=== PATIENT | female | born 1975 | race African-American/Black ===

== ENCOUNTER 2016-06-13 18:34 | Emergency (ER) | payer OTHER ==
[~2016-06-13] VITALS: Ht 170.2 cm; Wt 131.5 kg
--- NOTE | 2016-06-13 20:43 | ED GENERAL ADULT ---
History of Present Illness General Chief Complaint: Low Back Pain/Injury Stated Complaint: "LOWER BACK PAIN" Source: patient Exam Limitations: no limitations Vital Signs & Intake/Output Vital Signs & Intake/Output Vital Signs Date Time Temp Pulse Resp B/P Pulse O2 O2 Flow FiO2 Ox Delivery Rate 06/13 2310 97.7 78 16 134/85 97 Room Air 06/13 2131 98 Room Air 06/13 1928 97.2 80 18 117/86 97 Room Air ED Intake and Output 06/14 0000 06/13 1200 Intake Total 0 Output Total Balance 0 Intake, Oral 0 Patient 290 lb Weight Allergies Coded Allergies: NO KNOWN ALLERGIES (06/26/11) Reconcile Medications Buprenorphine (Butrans) 20 MCG/HOUR PATCH.TDWK 1 PAT TOP QW pain (Reported) Cyclobenzaprine HCl 10 MG TABLET 1 TAB PO TID PRN pain Metformin HCl (Metformin HCl ER) 500 MG TAB.ER.24 1 TAB PO DAILY diabetes ( Reported) Triage Note: PT COMPLAINS OF LOW BACK PAIN FOR ABOUT 1.5 WEEKS , DENIES INJURY, PT HAS NOT TAKEN ANYTHING FOR THE PAIN. Triage Nurses Notes Reviewed? yes : No Patient currently breastfeeds: No HPI: Patient is a 40-year-old lady that has come to the ED complaining of right back pain for about a week and a half. Pain is sharp H to 10 out of 10 does not radiate but improves with moving and aggravates while sitting or lying down or bending. Patient denies any trauma, accident or heavy lifting, she denies fevers, but reports having frequency and nocturia for the past week. Patient has diabetes and takes metformin 500 mg daily. she had HbA1C checked in march and reports it was 6.0% Denies any dysuria or changes in the urine color. Denies abdominal pain, diarrhea, reports swelling in the legs a few months ago left side more tender right which she followed up with Dr. Cardenas and was negative for DVT. Currently does not report any swelling. Patient has a history of right and left fibula fracture in 1999 1210 respectively she also has a history of vague pain in the groin for which she gets physical therapy she denies having a similar back pain in the past. (NADIRA DEE,[facility]) Past History Travel History Traveled to [place] past 21 day No Medical History Any Pertinent Medical History? see below for history Neurological: NONE EENT: NONE Cardiovascular: NONE Respiratory: NONE Gastrointestinal: NONE Hepatic: NONE Renal: NONE Musculoskeletal: chronic back pain (chronic leg pain), fractures of the right fibula requiring opend reduction and internal fixation (in 2012) and left fibula (in 2011) Psychiatric: NONE Endocrine: diabetes Blood Disorders: NONE Cancer(s): NONE Surgical History Surgical History: open reduction internal fixation of the right fibula Psychosocial History What is your primary language Armenian Tobacco Use: Never used ETOH Use: denies use Illicit Drug Use: denies illicit drug use Family History Family History, If Any: MOTHER FH: diabetes in FH: HTN (hypertension) FHx: heart disease FATHER Hx Contributory? No (DANNY WADDELL MD) Review of Systems Review of Systems Constitutional: Denies: chills, fever, weakness. EENTM: Reports: no symptoms. Respiratory: Reports: no symptoms. Cardiovascular: Reports: no symptoms. GI: Reports: no symptoms. Genitourinary: Reports: frequency, nocturia. Denies: dysuria. Musculoskeletal: Reports: back pain. Skin: Reports: no symptoms. Neurological/Psychological: Denies: numbness, tingling, weakness. Hematologic/Endocrine: Reports: polyuria. Denies: bruising, bleeding. (DANNY WADDELL MD) Physical Exam Physical Exam General Appearance: well developed/nourished, no apparent distress, alert, awake Head: atraumatic, normal appearance Eyes: Bilateral: PERRL, EOMI. Ears, Nose, Throat: normal pharynx, nasal congestion Neck: normal inspection, supple, full range of motion Respiratory: normal breath sounds, chest non-tender, no respiratory distress Cardiovascular: regular rate/rhythm Peripheral Pulses: 2+ radial (R), 2+ radial (L) Gastrointestinal: normal bowel sounds, soft, non-tender Back: tenderness on the lumbar vertebrae as well as posterior left pelvis , no CVA tenderness Extremities: normal inspection, normal capillary refill, normal range of motion, no edema Neurologic/Psych: no motor/sensory deficits, awake, alert, oriented x 3 Skin: intact Core Measures ACS in differential dx? No CVA/TIA Diagnosis: No Severe Sepsis Present: No Septic Shock Present: No (DANNY WADDELL MD) Progress Differential Diagnoses I considered the following diagnoses in my evaluation of the patient: [Disc herniation,uncontrolled diabetes] Plan of Care: Orders Procedure Date/time Status FingerStick- Glucose 06/13 2133 Active URINE 06/13 1930 Complete URINALYSIS 06/13 1930 Complete Laboratory Tests 06/13/16 1950: Urinalysis LIGHT H, Urine Color YEL, Urine Clarity CLDY H, Urine pH 7.0, Ur Specific [place] 1.015, Urine Protein NEG, Urine Ketones NEG, Urine Nitrite NEG, Urine Bilirubin NEG, Urine Urobilinogen 0.2, Ur Leukocyte Esterase SMALL H, Ur Microscopic SEDIMENT EXAMINED, Urine RBC RARE, Urine WBC 5-10 H, Ur Epithelial Cells MOD H, Urine Mucus FEW, Urine Hemoglobin NEG, Urine Glucose >=1000 H, Urine Test NEGATIVE Initial ED EKG: none Comments: urine test is negative, urine shows elevated glucose, IM toradol was administered for pain. (DANNY WADDELL MD) Differential Diagnoses I considered the following diagnoses in my evaluation of the patient: (VIOLETA MATOS DO) Departure Departure Disposition: HOME OR SELF CARE Condition: Stable Clinical Impression Primary Impression: Lumbar disc herniation Secondary Impressions: Uncontrolled diabetes mellitus Referrals: JIHAN VALENTIN MD (PCP/Family) Departure Forms: Customer Survey General Discharge Information Prescriptions: Current Visit Scripts Cyclobenzaprine HCl 1 TAB PO TID PRN pain #30 TAB (DANNY WADDELL MD) Resident Co-Sign Statement Statement: ED Attending supervision documentation- [x] I saw and evaluated the patient. I have also reviewed all the pertinent lab results and diagnostic results. I agree with the findings and the plan of care as documented in the Resident's documentation. [] I have reviewed the ED Record and agree with the Resident's documentation. [] Additions or exceptions (if any) to the Resident's note and plan are summarized below: [] 40-year-old female with a history of diabetes noncompliant with her metformin today, she is complaining of ongoing low back pain. No fever no lower extremity weakness, no bowel or bladder dysfunction. Physical exam is significant for lower lumbar tenderness. She had an elevated blood glucose. No ketones in the urine. No hematuria. She was given insulin in the ED, Flexeril for the pain, she'll follow-up with her doctor on Thursday. Lumbar x-ray unremarkable PATIENT: AUDELIA SLATER PRESENT AGE: 40 PATIENT ACCOUNT NO: [id number] : 73 LOCATION: [facility] ORDERING PHYSICIAN: DANNY WADDELL MD SERVICE DATE: 06/13/16- EXAM TYPE: RAD - XRY-LUMBAR SPINE ONE VIEW EXAMINATION: XR LUMBAR SPINE CLINICAL INFORMATION: Lower back pain. COMPARISON: Plain films of the lumbar spine to 11/04/2013. TECHNIQUE: Single AP view of the lumbar spine. FINDINGS: Please note that single view of the lumbar spine is limited in its diagnostic capability. There are 4 nonrib-bearing lumbar vertebral bodies with previously noted hemisacralization of the L5 vertebral body. Vertebral body heights and intervertebral disc spaces appear preserved on single AP view. No abnormal soft tissue calcifications are noted. Paraspinal soft tissues appear unremarkable. IMPRESSION: Limited exam secondary to single view of the lumbar spine. Four nonrib-bearing lumbar vertebral bodies with a previously noted hemisacralization of the L5 vertebral body. Vertebral body heights and intervertebral disc spaces appear preserved. DICTATED BY: CHERRIE ARCHER MD DATE/TIME DICTATED:06/13/162328 MAINTENANCE SUPERVISOR 2ND SHIFT:CHER DATE/TIME TRANSCRIBED:06/13/162328 CONFIDENTIAL, DO NOT COPY WITHOUT APPROPRIATE AUTHORIZATION. <Electronically signed in Other Vendor System> SIGNED BY: CHERRIE ARCHER MD 06/13/16 2169 (VIOLETA MATOS DO) Critical Care Note Critical Care Note Critical Care Time: non-applicable (NADIRA DEE,DANNY)
[2016-06-13] MEDS ORDERED: METFORMIN HCL500 M2 PO (21:21)
[2016-06-13] MEDS ORDERED: BUTRANS1 EAC2 TOP (21:25)
[2016-06-13 23:10] VITALS: BP 134/85
[2016-06-13] MEDS ORDERED: CYCLOBENZAPRINE10 M1 PO (23:30)
--- NOTE | 2016-06-13 23:35 | RADIOLOGY REPORT ---
EXAMINATION: XR LUMBAR SPINE CLINICAL INFORMATION: Lower back pain. COMPARISON: Plain films of the lumbar spine to 11/04/2013. TECHNIQUE: Single AP view of the lumbar spine. FINDINGS: Please note that single view of the lumbar spine is limited in its diagnostic capability. There are 4 nonrib-bearing lumbar vertebral bodies with previously noted hemisacralization of the L5 vertebral body. Vertebral body heights and intervertebral disc spaces appear preserved on single AP view. No abnormal soft tissue calcifications are noted. Paraspinal soft tissues appear unremarkable. IMPRESSION: Limited exam secondary to single view of the lumbar spine. Four nonrib-bearing lumbar vertebral bodies with a previously noted hemisacralization of the L5 vertebral body. Vertebral body heights and intervertebral disc spaces appear preserved.
== END 2016-06-13 23:45 ==
LOC: ERH 18:34
DX: M51.26 Other intervertebral disc displacement, lumbar region (principal); E11.9 Type 2 diabetes mellitus without complications
CPT/HCPCS: 72020; 81001; 81025; 96372; J1885

== ENCOUNTER 2017-12-23 11:01 | Emergency (ER) | payer OTHER ==
[~2017-12-23] VITALS: Ht 170.2 cm; Wt 140.6 kg
[~2017-12-23 11:01] MED LIST: BUTRANS1 EAC2 TOP; CYCLOBENZAPRINE10 M1 PO; METFORMIN HCL500 M2 PO
[2017-12-23] MEDS ORDERED: OZEMPIC1 MG/0.75 SC (11:43)
--- NOTE | 2017-12-23 12:00 | ED DYSPNEA/ASTHMA COMPLAINT ---
History of Present Illness General Chief Complaint: General Adult Stated Complaint: FEET SWOLLEN Source: patient Exam Limitations: no limitations Vital Signs & Intake/Output Vital Signs & Intake/Output Vital Signs Date Time Temp Pulse Resp B/P B/P Pulse O2 O2 Flow FiO2 Mean Ox Delivery Rate 12/23 1338 97.0 90 20 120/80 98 Room Air 12/23 1143 Room Air 12/23 1116 97.1 92 18 119/82 96 Room Air Allergies Coded Allergies: NO KNOWN ALLERGIES (06/26/11) Reconcile Medications Buprenorphine (Butrans) 20 MCG/HOUR PATCH.TDWK 1 PAT TOP QW pain (Reported) Cyclobenzaprine HCl 10 MG TABLET 1 TAB PO TID PRN pain Furosemide (Lasix) 20 MG TABLET 1 TAB PO DAILY PRN LEG EDEMA Metformin HCl (Metformin HCl ER) 500 MG TAB.ER.24 1 TAB PO DAILY diabetes ( Reported) Semaglutide (Ozempic) 1 MG/0.75 ML (2 MG/1.5 ML) PEN.INJCTR DIABETES (Reported) Triage Note: PT STATES THAT FOR THE PAST COUPLE WEEKS HER BILATERAL FEET HAVE BEEN SWELLING UP WHEN SHE IS UP MOVING AROUND. SWELLING GOES DOWN WHEN SHE ELEVATES HER FEET. DENIES SOB Triage Nurses Notes Reviewed? yes Onset: Gradual Duration: intermittent Timing: recent history Severity: moderate : No Patient currently breastfeeds: No HPI: Patient is a 42-year-old female with a past medical history of chronic back pain and diabetes who presents to emergency room with a 3 week history of intermittent bilateral lower extremity swelling that is made worse at the end of her work day and better with elevation and rest. Patient denies any fever or chills chest pain dyspnea on exertion shortness of breath cough hemoptysis history of DVT or PE or change in frequency of urination. (Haim Nolan) Past History Travel History Traveled to [place] past 21 day No Medical History Any Pertinent Medical History? see below for history Neurological: NONE EENT: NONE Cardiovascular: NONE Respiratory: NONE Gastrointestinal: NONE Hepatic: NONE Renal: NONE Musculoskeletal: chronic back pain (chronic leg pain), fractures of the right fibula requiring opend reduction and internal fixation (in 2011) and left fibula (in 2010) Psychiatric: NONE Endocrine: diabetes Blood Disorders: NONE Cancer(s): NONE Surgical History Surgical History: open reduction internal fixation of the right fibula Psychosocial History What is your primary language Chinese Tobacco Use: Never used ETOH Use: denies use Illicit Drug Use: marijuana Family History Family History, If Any: MOTHER FH: diabetes in FH: HTN (hypertension) FHx: heart disease FATHER Hx Contributory? No (Haim Nolan) Review of Systems Review of Systems Constitutional: Reports: no symptoms. EENTM: Reports: no symptoms. Respiratory: Reports: see HPI. Denies: cough, short of breath. Cardiovascular: Reports: see HPI, edema, peripheral edema. GI: Reports: no symptoms. Genitourinary: Reports: no symptoms. Musculoskeletal: Reports: no symptoms. Skin: Reports: no symptoms. Neurological/Psychological: Reports: no symptoms. Hematologic/Endocrine: Reports: no symptoms. Immunologic/Allergic: Reports: no symptoms. All Other Systems: Reviewed and Negative (Haim Nolan) Physical Exam Physical Exam General Appearance: no apparent distress, alert, obese Head: atraumatic Eyes: Bilateral: normal appearance. Ears, Nose, Throat: normal ENT inspection Neck: normal inspection Respiratory: normal breath sounds, chest non-tender, no respiratory distress Cardiovascular: regular rate/rhythm Peripheral Pulses: 2+ dorsalis pedis (R), 2+ dorsalis pedis (L) Extremities: pedal edema Neurologic/Psych: no motor/sensory deficits Skin: intact, normal color, warm/dry Core Measures ACS in differential dx? No CVA/TIA Diagnosis No Sepsis Present: No Sepsis Focused Exam Completed? No (Haim Nolan) Progress Differential Diagnosis: asthma, AMI, CHF, COPD, musculoskeletal pain, pericarditis, pulmonary embolism, pneumonia, pneumothorax, unstable angina Plan of Care: Orders Procedure Date/time Status Add-on Test (ER Only) 12/23 1252 Active HUMAN BETA HCG SCREEN 12/23 1137 Complete URINE 12/23 1121 Active URINALYSIS 12/23 1121 Active TROPONIN LEVEL 12/23 1121 Complete COMPREHENSIVE METABOLIC PANEL 12/23 1121 Complete CBC WITHOUT DIFFERENTIAL 12/23 1121 Complete B-TYPE NATRIURETIC PEP (BNP) 12/23 1121 Complete EKG 12/23 1121 Active Laboratory Tests 12/23/17 1137: Anion Gap 4 L, Estimated GFR > 60, BUN/Creatinine Ratio 10.0, Glucose 196 H, Calcium 9.0, Total Bilirubin 0.2, AST 21, ALT 41, Alkaline Phosphatase 83, Troponin I < 0.01, Phm-P-Muxlygnhbea Pept 31.3, Total Protein 6.4, Albumin 3.5, Globulin 2.9, Albumin/Globulin Ratio 1.2, Total Beta HCG NEGATIVE, CBC w Diff NO MAN DIFF REQ, RBC 5.29, MCV 73.7 L, MCH 24.6 L, MCHC 33.5, RDW 16.0 H, MPV 10.1, Gran % 49.5, Lymphocytes % 39.3, Monocytes % 7.4, Eosinophils % 3.4, Basophils % 0.4, Absolute Granulocytes 2.2, Absolute Lymphocytes 1.7, Absolute Monocytes 0.3, Absolute Eosinophils 0.1, Absolute Basophils 0 Patient on initial presentation is resting comfortable at bedside on her phone in no apparent distress, patient was neurovascular intact to lower extremities patient has nonpitting +2 bilateral lower extremity edema. Denies any respiratory complaints denies any shortness of breath No suspicion of PE Patient has unremarkable blood work no emergent warranting of images of chest patient had clear lungs auscultation denies any rest for complaints Patient was strongly advised to follow-up discharge instructions and the plan Diagnostic Imaging: Viewed by Me: Ultrasound. Radiology Impression: no acute abnormality, no fracture Initial ED EKG: normal QRS complex, normal sinus rhythm (89 BPM,NSR) Comments: PATIENT: AUDELIA SLATER PRESENT AGE: 42 PATIENT ACCOUNT NO: [id number] : 73 LOCATION: [facility] ORDERING PHYSICIAN: Arian SOTO SERVICE DATE: 12/23/17 EXAM TYPE: US - US-EXT BILAT VENOUS DOPPLER EXAMINATION: US TRIPLEX OF LOWER EXTREMITIES, BILATERAL CLINICAL INFORMATION: This is a 42-year-old female with bilateral lower extremity edema. Swelling at the top of the feet. No pain or redness. No history of trauma. COMPARISON: None TECHNIQUE: Color-flow triplex imaging with spectral analysis and compression Doppler were performed on the lower extremities. FINDINGS: Respiratory variation, normal compression and augmented flow are noted throughout the lower extremities. The visualized common femoral vein, superficial femoral vein, profunda femoral vein, popliteal vein and midcalf peroneal and posterior tibial venous segments show no evidence of deep venous thrombosis. There is no Natarajan's cyst. IMPRESSION: No evidence of deep venous thrombosis involving the bilateral lower extremities. DICTATED BY: Rudolph Ballard MD DATE/TIME DICTATED:12/23/171246 BIOLOGICAL TECHNICAL OFFICER:CHER DATE/TIME TRANSCRIBED:12/23/17 (Haim Nolan) Departure Departure Disposition: HOME OR SELF CARE Condition: Stable Clinical Impression Primary Impression: Leg edema Referrals: Carolyn DEE,Shane Mcconnell (PCP/Family) Additional Instructions: As discussed try to elevate THE feet as much as possible to improve the swelling , BEGIN THE prescription of Lasix for swelling. Prescriptions waiting [facility] [place]. Follow-up your primary care doctor on Thursday if no better. IF symptoms worsen or if YOU develop A new concerning symptom return to emergency room Departure Forms: Customer Survey General Discharge Information Prescriptions: Current Visit Scripts Furosemide (Lasix) 1 TAB PO DAILY PRN LEG EDEMA #4 TAB (Haim Nolan) PA/PROOF PASSER Co-Sign Statement Statement: ED Attending supervision documentation- [] I saw and evaluated the patient. I have also reviewed all the pertinent lab results and diagnostic results. I agree with the findings and the plan of care as documented in the PA's/PROOF PASSER's documentation. [x] I have reviewed the ED Record and agree with the PA's/PROOF PASSER's documentation. [] Additions or exceptions (if any) to the PAs/PROOF PASSER's note and plan are summarized below: [] (Chidi Martino DO) Critical Care Note Critical Care Note Critical Care Time: non-applicable (Haim Nolan)
[2017-12-23 12:05] LABS: ABSOLUTE BASOPHIL COUNT 0 /CUMM (0.0-0.2); ABSOLUTE EOSINOPHIL COUNT 0.1 /CUMM (0.0-0.7); ABSOLUTE GRANULOCYTE CT 2.2 /CUMM (1.4-6.5); ABSOLUTE LYMPH COUNT 1.7 /CUMM (1.2-3.4); ABSOLUTE MONOCYTE COUNT 0.3 /CUMM (0.10-0.60); BASOPHIL % 0.4 % (0.0-2.0); EOSINOPHIL % 3.4 % (0-5); GRANULOCYTE % 49.5 % (42.2-75.2); MEAN CORPUSCULAR HGB 24.6 PG (27.0-31.0); MEAN CORPUSCULAR HGB CONC 33.5 G/DL (33.0-37.0); MEAN CORPUSCULAR VOLUME 73.7 FL (81.0-99.0); MEAN PLATELET VOLUME 10.1 FL (7.4-10.4); PLATELET COUNT 235 /CUMM (130-400); RED BLOOD CELL CT 5.29 /CUMM (4.20-5.40); WHITE BLOOD CELL COUNT 4.4 /CUMM (4.8-10.8)
--- NOTE | 2017-12-23 12:51 | ULTRASOUND REPORT ---
EXAMINATION: US TRIPLEX OF LOWER EXTREMITIES, BILATERAL CLINICAL INFORMATION: This is a 42-year-old female with bilateral lower extremity edema. Swelling at the top of the feet. No pain or redness. No history of trauma. COMPARISON: None TECHNIQUE: Color-flow triplex imaging with spectral analysis and compression Doppler were performed on the lower extremities. FINDINGS: Respiratory variation, normal compression and augmented flow are noted throughout the lower extremities. The visualized common femoral vein, superficial femoral vein, profunda femoral vein, popliteal vein and midcalf peroneal and posterior tibial venous segments show no evidence of deep venous thrombosis. There is no Natarajan's cyst. IMPRESSION: No evidence of deep venous thrombosis involving the bilateral lower extremities.
[2017-12-23] MEDS ORDERED: LASIX20 M1 PO (12:56)
[2017-12-23 13:38] VITALS: BP 120/80
== END 2017-12-23 13:38 ==
LOC: ERH 11:01
PROVIDERS: Physician Assistant Medical
DX: R60.0 Localized edema (principal); E11.9 Type 2 diabetes mellitus without complications; Z79.84 Long term (current) use of oral hypoglycemic drugs
CPT/HCPCS: 81025; 93005; 93010; 93970